=== PATIENT | female | born 1935 | race Native Hawaiian/Other Pacific Islander ===

== ENCOUNTER 2018-07-08 18:10 | Emergency (ER) | payer OTHER ==
[~2018-07-08] VITALS: Ht 160 cm; Wt 53.1 kg
[2018-07-08 18:36] LABS: PLATELET COUNT 237 K/uL (152-353)
[2018-07-08 18:44] LABS: POTASSIUM 3.9 mmol/L (3.6-5.2)
[2018-07-08 19:07] VITALS: BP 151/75; TEMP 97.7
[2018-07-09] MEDS ORDERED: TRAZ100T PO (07:30)
[2018-07-09] MEDS ORDERED: CARTIA XT120 MG/24 PO (07:31)
[2018-07-09] MEDS ORDERED: HUMIRA PED40 MG/0.8 SC (07:33)
[2018-07-09] MEDS ORDERED: AMLODIPINE BESYLATE PO (07:35)
[2018-07-09] MEDS ORDERED: DITROPAN XL10 MG PO (07:36)
[2018-07-09] MEDS ORDERED: ASPIRIN 81 LOW81 MG PO (07:37)
[2018-07-09] MEDS ORDERED: OMEPRAZOLE40 MG PO (07:38)
[2018-07-09] MEDS ORDERED: VITAMIN B-121000 MC2 PO (07:39)
[2018-07-09] MEDS ORDERED: FERROUS SULF325 M1 PO (07:40)
[2018-07-09] MEDS ORDERED: WELCHOL625 MG PO (07:41)
[2018-07-09] MEDS ORDERED: CLON1TAB18 PO (07:41)
[2018-07-09] MEDS ORDERED: BENTYL10 MG PO (07:42)
[2018-07-09] MEDS ORDERED: METO-837 PO (07:44)
[2018-07-09] MEDS ORDERED: DULOXETINE HCL30 MG PO ×2 (07:45→07:46)
[2018-07-09] MEDS ORDERED: HYDR10TA47 PO (07:49)
[2018-07-09] MEDS ORDERED: LOMOTIL2.5 MG PO (07:51)
[2018-07-22] MEDS ORDERED: NAC 600 PO (10:16)
[2018-07-22] MEDS ORDERED: MEMA5TAB PO (10:16)
[2018-07-22] MEDS ORDERED: TRAZ50TA36 PO (10:16)
[2018-07-22] MEDS ORDERED: RISP0.25 PO ×2 (10:16)
[2018-07-22] MEDS ORDERED: BUSP5TAB2 PO (10:16)
[2018-07-22] MEDS ORDERED: DULO30CA PO (10:16)
[2018-07-22] MEDS ORDERED: DONE5TAB PO (10:16)
== END 2018-07-08 19:07 | disposition other institution (70) ==
LOC: ED 18:10
PROVIDERS: Emergency Medicine
DX: Z04.6 Encounter for general psychiatric examination, requested by authority (principal); F28 Other psychotic disorder not due to a substance or known physiological condition; G30.8 Other Alzheimer's disease; F02.80 Dementia in other diseases classified elsewhere, unspecified severity, without behavioral disturbance, psychotic disturbance, mood disturbance, and anxiety; J44.9 Chronic obstructive pulmonary disease, unspecified; I10 Essential (primary) hypertension
CPT/HCPCS: 36415; 80053; 85027; 99285